=== PATIENT | female | born 1995 | race Caucasian/White ===

== ENCOUNTER → 2017-01-06 | Outpatient (CLI) | payer OTHER ==
--- NOTE | 2017-01-06 13:09 | DIAGNOSTIC IMAGING REPORT ---
LUMBAR SPINE MIN 4 VIEWS CLINICAL HISTORY: LOW BACK PAIN COMPARISON STUDY: No previous studies for comparison. FINDINGS: No acute fractures or subluxations are visualized. Fragmentation of the left lateral mass at the L5 level, is likely chronic. If the patient has symptoms referrable to this level, CT scanning could always be obtained in follow-up. IMPRESSION: 1. No acute fractures or subluxations identified 2. Fragmentation at the level of the left lateral mass at the L5 level, likely chronic. Electronically signed by: Tyler Orellana M.D. 01/06/2017 1:08 PM Dictated Date/Time: 01/06/2017 1:05 PM
--- NOTE | 2017-01-06 13:11 | DIAGNOSTIC IMAGING REPORT ---
PELVIS 1 OR 2 VIEWS CLINICAL HISTORY: LOW BACK PAIN COMPARISON STUDY: No previous studies for comparison. FINDINGS: No acute fractures are visualized. There is fragmentation of the left lateral mass at the L5 level, possibly chronic. If the patient has symptoms preferable to this level, then CT scanning might be considered in follow-up. 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 IMPRESSION: 1. Diminished acetabular coverage of the femoral heads bilaterally. This is felt to be developmental 2. No acute fractures 3. Fragmentation of the left lateral mass of the L5 level, likely chronic. If the patient's symptoms at this level, then CT scanning could be obtained in follow-up Electronically signed by: Tyler Orellana M.D. 01/06/2017 1:10 PM Dictated Date/Time: 01/06/2017 1:08 PM
== END | disposition home or self-care (01) ==
LOC: C.RDSM 10-18 14:52
PROVIDERS: ATTEND Family Medicine
DX: M54.5 Low back pain (principal)

== ENCOUNTER → 2017-01-26 | Outpatient (CLI) | payer OTHER ==
--- NOTE | 2017-01-26 20:28 | DIAGNOSTIC IMAGING REPORT ---
BONE SCAN, INCLUDING SPECT OF THE THORACOLUMBAR SPINE, SACRUM, SACROILIAC JOINTS AND MID TO UPPER PELVIS CLINICAL HISTORY: Lumbar spine stress fracture. Persistent low back pain. COMPARISON STUDY: Lumbar spine radiographs and pelvis radiographs January 06, 2017. TECHNIQUE: 25.6 mCi of technetium 99m MDP was injected IV at 12:15 PM on January 26, 2017. 3 hours following injection, delayed phase imaging of the mid to lower thoracic spine, lumbar spine, sacrum, mid upper pelvis and sacroiliac joints was performed including SPECT imaging. FINDINGS: Expected skeletal uptake is identified. There is a focal area of moderate radiotracer uptake within the left aspect of the lower lumbar spine likely at the L5 level which correlates with the abnormality shown on radiographs of January 06, 2017. No additional areas of abnormal radiotracer uptake are identified on this examination. IMPRESSION: Focus of moderate radiotracer uptake within the left lower lumbar spine, likely at the L5 level which correlates with the abnormality shown on prior radiographs. This likely reflects a subacute to chronic finding. Differential considerations include a congenital abnormality with anomalous articulation, stress fracture or pars anomaly. Electronically signed by: Jozef Weber M.D. 01/26/2017 8:26 PM Dictated Date/Time: 01/26/2017 5:19 PM
== END | disposition home or self-care (01) ==
LOC: C.NUCL 12:00
PROVIDERS: ATTEND Orthopaedic Surgery Sports Medicine
DX: M84.30XA Stress fracture, unspecified site, initial encounter for fracture (principal); X58.XXXA Exposure to other specified factors, initial encounter

== ENCOUNTER → 2017-03-30 | Outpatient (CLI) | payer OTHER ==
--- NOTE | 2017-03-30 09:30 | DIAGNOSTIC IMAGING REPORT ---
MRI LUMBAR SPINE W/O CONTRAST CLINICAL HISTORY: L5 stress fracture. Low back pain. TECHNIQUE: Sagittal and axial T1, T2 and STIR images were obtained. COMPARISON STUDY: Three-phase bone scan dated 01/26/2017, conventional radiographic evaluation the lumbar spine dated 01/06/2017 OBSERVATIONS: The vertebral bodies and posterior elements appear intact. There is no abnormal bony signal present to suggest a marrow replacement process. L1-2: No disc protrusions or extrusions. No evidence of spinal canal or neural foraminal compromise. L2-3: No disc protrusions or extrusions. No evidence of spinal canal or neural foraminal compromise. L3-4: No disc protrusions or extrusions. No evidence of spinal canal or neural foraminal compromise. L4-5: No disc protrusions or extrusions. No evidence of spinal canal or neural foraminal compromise. L5-S1: No disc protrusions or extrusions. No evidence of spinal canal or neural foraminal compromise. The conus medullaris and cauda equina appear normal. IMPRESSION: Normal study. Electronically signed by: Tyler Orellana M.D. 03/30/2017 9:29 AM Dictated Date/Time: 03/30/2017 9:23 AM
== END | disposition home or self-care (01) ==
LOC: C.MRIBC 08:36
PROVIDERS: ATTEND Orthopaedic Surgery Sports Medicine
DX: M54.5 Low back pain (principal); M84.3 Stress fracture

== ENCOUNTER → 2017-09-16 | Outpatient (CLI) | payer OTHER | END | disposition home or self-care (01) | LOC: C.LAB 17:46 | PROVIDERS: ATTEND Family Medicine | DX: J02.9 Acute pharyngitis, unspecified (principal); R50.9 Fever, unspecified ==

== ENCOUNTER → 2018-06-27 | Outpatient (CLI) | payer BC, OTHER ==
[~2018-06-27] MED LIST: AZEL0.056 NAE; B-CO-25 PO; BCPILLS PO; BIOT1CAP8 PO; CHOL1000 PO; FLUT50SP45 NAE; IRON PO; MONT1TAB5 PO
== END | disposition home or self-care (01) ==
LOC: C.RDSM 11:12
PROVIDERS: ATTEND Orthopaedic Surgery Sports Medicine
DX: R52 Pain, unspecified (principal)